=== PATIENT | male | born 1990 | race Caucasian/White ===

== ENCOUNTER 2017-11-24 06:40 | Day surgery (SDC) | payer OTHER ==
[~2017-11-24] VITALS: Ht 172.7 cm; Wt 81.8 kg
[~2017-11-24 06:40] MED LIST: LIDOCAINE/PF 1%-EPI 1:200K, 30 ML ONE
[2017-11-24] MEDS ORDERED: DEXL60CA2 PO (07:06)
[2017-11-24] MEDS ORDERED: LACTATED RINGERS 1,000 ML IV SCH (07:06)
[2017-11-24 07:07] VITALS: BP 134/82
[2017-11-24] MEDS ORDERED: LIDOCAINE 1%, 2ML SQ PRN (07:30)
[2017-11-24] MEDS ORDERED: PROPOFOL 10 MG/ML, 20ML ONE (07:53)
[2017-11-24] MEDS ORDERED: CEFAZOLIN 1,000 MG ONE (07:53)
[2017-11-24] MEDS ORDERED: EPINEPHRINE 1 MG/ML, 1ML ONE (08:05)
[2017-11-24] MEDS ORDERED: BUPIVACAINE/PF 0.5% ONE (08:05)
[2017-11-24] MEDS ORDERED: ACETAMINOPHEN 325 MG TABLET ONE (08:29)
[2017-11-24] MEDS ORDERED: ACETAMINOPHEN 650 MG/20.3 ML UDC ONE (08:29)
[2017-11-24] MEDS ORDERED: ACETAMINOPHEN 325 MG TABLET PO PRN (08:30)
[2017-11-24] MEDS ORDERED: OXYcodone 5 MG/5 ML ORAL.SOL UDC PO PRN (08:30)
[2017-11-24] MEDS ORDERED: HYDROcodone/APAP 7.5-325MG/15ML UDC PO PRN (08:30)
== END 2017-11-24 09:55 | disposition home or self-care (01) ==
LOC: OUT 06:40
PROVIDERS: ATTEND Orthopaedic Surgery
DX: T84.84XA Pain due to internal orthopedic prosthetic devices, implants and grafts, initial encounter (principal); K21.9 Gastro-esophageal reflux disease without esophagitis; Y83.8 Other surgical procedures as the cause of abnormal reaction of the patient, or of later complication, without mention of misadventure at the time of the procedure; Y92.89 Other specified places as the place of occurrence of the external cause
CPT/HCPCS: 20680; J0171; J0690; J2704; J3490; J7120